=== PATIENT | male | born 1990 | race African-American/Black ===

== ENCOUNTER 2024-04-21 06:42 | Emergency (ER) | payer OTHER ==
--- NOTE | 2024-04-21 07:13 | ED ---
General Adult HPI - General Chief complaint: Headache Stated complaint: ,headache Time Seen by Provider: 04/21/24 06:43 Source: patient, EMS, RN notes reviewed Mode of arrival: EMS Limitations: no limitations - History of Present Illness Initial comments: 34-year-old male presents emergency department with chief complaint of headache, head pressure facial pain. 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 But states he has increasing head pressure along with facial pain states for like his face is swollen. He denies any trauma no neck trauma but states he has some discomfort with swallowing no chest pain or shortness of breath he takes some herbal supplements but denies any current prescription medications takes [id number] omeprazole. Denies any allergies other than not denies any exposures. - Related Data Allergies Allergy/AdvReac Type Severity Reaction Status Date / Time nut - unspecified Allergy Wheezing Verified 04/21/24 06:55 Review of Systems ROS Statement: Those systems with pertinent positive or pertinent negative responses have been documented in the HPI. ROS Other: All systems not noted in ROS Statement are negative. Past Medical History Additional Past Medical History / Comment(s): vitamin D deficency History of Any Multi-Drug Resistant Organisms: None Reported Additional Past Surgical History / Comment(s): Dental sx Smoking Status: Never smoker Past Alcohol Use History: Rare Past Drug Use History: None Reported General Exam Limitations: no limitations General appearance: alert, in no apparent distress Head exam: Present: atraumatic, normocephalic, normal inspection Eye exam: Present: normal appearance, PERRL, EOMI. Absent: scleral icterus, conjunctival injection, periorbital swelling ENT exam: Present: normal exam, normal oropharynx, mucous membranes moist Neck exam: Present: normal inspection, full ROM. Absent: tenderness, meningismus, lymphadenopathy Respiratory exam: Present: normal lung sounds bilaterally. Absent: respiratory distress, wheezes, rales, rhonchi, stridor Cardiovascular Exam: Present: regular rate, normal rhythm, normal heart sounds. Absent: systolic murmur, diastolic murmur, rubs, gallop, clicks GI/Abdominal exam: Present: soft, normal bowel sounds. Absent: distended, tenderness, guarding, rebound, rigid Neurological exam: Present: alert, oriented X3, CN II-XII intact, reflexes normal. Absent: motor sensory deficit Skin exam: Present: warm, dry, intact, normal color. Absent: rash Course Vital Signs 04/21/24 06:45 Temperature 98.5 F Pulse Rate 88 Respiratory 18 Rate Blood Pressure 136/82 O2 Sat by Pulse 96 Oximetry Medical Decision Making - Medical Decision Making Was pt. sent in by a medical professional or institution (, [place], STUD[employer] [facility], urgent care, hospital, or prison...) When possible be specific @ -No Did you speak to anyone other than the patient for history (EMS, parent, family, police, friend...)? What history was obtained from this source @ -No Did you review nursing and triage notes (agree or disagree)? Why? @ -I reviewed and agree with nursing and triage notes Were old charts reviewed (outside hosp., previous admission, EMS record, old EKG, old radiological studies, urgent care reports/EKG's, prison records)? Report findings @ -No old charts were reviewed Differential Diagnosis (chest pain, altered mental status, abdominal pain women, abdominal pain men, vaginal bleeding, weakness, fever, dyspnea, syncope, headache, dizziness, GI bleed, back pain, seizure, CVA, palpatations, mental health, musculoskeletal)? @ -Differential Headache: Migraine, tension, cluster, carbon monoxide, central venous thrombosis, pension karma temporal arteritis, acute closure glaucoma, intercranial hemorrhage, mastoiditis, sinusitis, head injury, this is not meant to be an all-inclusive list. EKG interpreted by me (3pts min.). @ -None X-rays interpreted by me (1pt min.). @ -None done CT interpreted by me (1pt min.). @ -CT brain, facial bones showing no Lycelle bladder tonsils, no acute intracranial hemorrhage, no fracture fracture or acute masses or signs of infection noted U/S interpreted by me (1pt. min.). @ -None done What testing was considered but not performed or refused? (CT, X-rays, U/S, labs)? Why? @ -None What meds were considered but not given or refused? Why? @ -None Did you discuss the management of the patient with other professionals (professionals i.e. , SHAUN, STUDENT AFFAIRS DEAN, lab, RT, psych nurse, social insurance administrator, pedal assembler, teacher, signals officer, director of casework department)? Give summary @ -No Was smoking cessation discussed for >3mins.? @ -No Was critical care preformed (if so, how long)? @ -No Were there social determinants of health that impacted care today? How? (Homelessness, low income, unemployed, alcoholism, drug addiction, transportation, low edu. Level, literacy, decrease access to med. care, nursing home, rehab)? @ -No Was there de-escalation of care discussed even if they declined (Discuss DNR or withdrawal of care, Hospice)? DNR status @ -No What co-morbidities impacted this encounter? (DM, HTN, Smoking, COPD, CAD, Cancer, CVA, ARF, Chemo, Hep., AIDS, mental health diagnosis, sleep apnea, morbid obesity)? @ -None Was patient admitted / discharged? Hospital course, mention meds given and route, prescriptions, significant lab abnormalities, going to OR and other pertinent info. @ -Discharge patient feels greatly improved he has no apparent symptoms at this time. Patient advised that he has low-lying cerebellar tonsils may be consistent with Chiari malformation. Patient will follow-up with neurosurgeon. Patient states that he feels comfortable discharge she is from [place] and prefers to follow-up there. Undiagnosed new problem with uncertain prognosis? @ -No Drug Therapy requiring intensive monitoring for toxicity (Heparin, Nitro, Insulin, Cardizem)? @ -No Were any procedures done? @ -No Diagnosis/symptom? @ -Headache, Chiari malformation Acute, or Chronic, or Acute on Chronic? @ -Acute Uncomplicated (without systemic symptoms) or Complicated (systemic symptoms)? @ -Uncomplicated Side effects of treatment? @ -No Exacerbation, Progression, or Severe Exacerbation? @ -No Poses a threat to life or bodily function? How? (Chest pain, [place], [place], pneumonia, PE, COPD, DKA, ARF, appy, cholecystitis, CVA, Diverticulitis, Homicidal, Suicidal, threat to staff... and all critical care pts) @ -No - Lab Data Result diagrams: 04/21/24 07:21 04/21/24 07:21 Lab Results 04/21/24 04/21/24 04/21/24 Range/Units 07:21 07:21 07:21 WBC 4.1 (3.8-10.6) k/uL RBC 5.61 (4.30-5.90) m/uL Hgb 17.2 (13.0-17.5) gm/dL Hct 51.1 (39.0-53.0) % MCV 91.2 (80.0-100.0) fL MCH 30.8 (25.0-35.0) pg MCHC 33.7 (31.0-37.0) g/dL RDW 13.4 (11.5-15.5) % Plt Count 224 (150-450) k/uL MPV 8.0 Neutrophils % 66 % Lymphocytes % 22 % Monocytes % 8 % Eosinophils % 1 % Basophils % 0 % Neutrophils # 2.7 (1.3-7.7) k/uL Lymphocytes # 0.9 L (1.0-4.8) k/uL Monocytes # 0.3 (0-1.0) k/uL Eosinophils # 0.0 (0-0.7) k/uL Basophils # 0.0 (0-0.2) k/uL Sodium 137 (137-145) mmol/L Potassium 4.2 (3.5-5.1) mmol/L Chloride 102 (98-107) mmol/L Carbon Dioxide 26 (22-30) mmol/L Anion Gap 9 mmol/L BUN 11 (9-20) mg/dL Creatinine 0.96 (0.66-1.25) mg/dL Est GFR (CKD-EPI)AfAm >90 (>60 ml/min/1.73 sqM) Est GFR (CKD-EPI)NonAf >90 (>60 ml/min/1.73 sqM) Glucose 97 (74-99) mg/dL Calcium 9.8 (8.4-10.2) mg/dL Total Bilirubin 1.4 H (0.2-1.3) mg/dL AST 30 (17-59) U/L ALT 29 (4-49) U/L Alkaline Phosphatase 56 (38-126) U/L Total Protein 7.9 (6.3-8.2) g/dL Albumin 4.6 (3.5-5.0) g/dL Urine Color Colorless Urine Appearance Clear (Clear) Urine pH 6.0 (5.0-8.0) Ur Specific [place] 1.009 (1.001-1.035) Urine Protein Negative (Negative) Urine Glucose (UA) Negative (Negative) Urine Ketones Trace H (Negative) Urine Blood Negative (Negative) Urine Nitrite Negative (Negative) Urine Bilirubin Negative (Negative) Urine Urobilinogen <2.0 (<2.0) mg/dL Ur Leukocyte Esterase Negative (Negative) Urine Opiates Screen Not Detected (NotDetected) Ur Oxycodone Screen Not Detected (NotDetected) Urine Methadone Screen Not Detected (NotDetected) Ur Barbiturates Screen Not Detected (NotDetected) U Tricyclic Antidepress Not Detected (NotDetected) Ur Phencyclidine Scrn Not Detected (NotDetected) Ur Amphetamines Screen Not Detected (NotDetected) U Methamphetamines Scrn Not Detected (NotDetected) U Benzodiazepines Scrn Not Detected (NotDetected) Urine Cocaine Screen Not Detected (NotDetected) U Marijuana (THC) Screen Not Detected (NotDetected) Serum Alcohol <10 mg/dL Disposition Clinical Impression: Headache, Chiari malformation Disposition: HOME SELF-CARE Condition: Stable Instructions (If sedation given, give patient instructions): Acute Headache (ED) Additional Instructions: Please return to the Emergency Department if symptoms worsen or any other concerns. Follow-up with neurosurgeon. Is patient prescribed a controlled substance at d/c from ED?: No Referrals: None,Stated [Primary Care Provider] - 1-2 days Time of Disposition: 08:45
[2024-04-21] MEDS: SODIUM CHLORIDE 0.9% 1,000 ML IV STA (07:19)
[2024-04-21 07:27] LABS: Basophils % (A) 0 %; Eosinophils % (A) 1 %; HCT 51.1 % (39.0-53.0); HGB 17.2 gm/dL (13.0-17.5); Lymphocytes # (A) 0.9 k/uL (1.0-4.8); Lymphocytes % (A) 22 %; MCH 30.8 pg (25.0-35.0); MCHC 33.7 g/dL (31.0-37.0); MCV 91.2 fL (80.0-100.0); Monocytes # (A) 0.3 k/uL (0-1.0); Monocytes % (A) 8 %; Neutrophils # (A) 2.7 k/uL (1.3-7.7); Neutrophils % (A) 66 %; Platelet Count 224 k/uL (150-450); RBC 5.61 m/uL (4.30-5.90); RDW 13.4 % (11.5-15.5); WBC 4.1 k/uL (3.8-10.6)
[2024-04-21 07:31] LABS: Appearance,Urine Clear (Clear); Bilirubin,Urine Negative (Negative); Blood,Urine Negative (Negative); Color,Urine Colorless; Glucose,Urine (UA) Negative (Negative); Ketones,Urine Trace (Negative); Leukocyte Esterase,Urine Negative (Negative); Nitrite,Urine Negative (Negative); Protein,Urine Negative (Negative); Specific Gravity,Urine 1.009 (1.001-1.035); Urobilinogen,Urine <2.0 mg/dL (<2.0)
[2024-04-21 07:36] LABS: ALT 29 U/L (4-49); AST 30 U/L (17-59); African American GFR (CKD) >90 (>60 ml/min/1.73 sqM); Albumin 4.6 g/dL (3.5-5.0); Alcohol <10 mg/dL; Alkaline Phosphatase 56 U/L (38-126); Anion Gap 9 mmol/L; Blood Urea Nitrogen 11 mg/dL (9-20); Calcium 9.8 mg/dL (8.4-10.2); Carbon Dioxide 26 mmol/L (22-30); Chloride 102 mmol/L (98-107); Glucose 97 mg/dL (74-99); Non-African American GFR(CKD) >90 (>60 ml/min/1.73 sqM); Potassium 4.2 mmol/L (3.5-5.1); Sodium 137 mmol/L (137-145); Total Bilirubin 1.4 mg/dL (0.2-1.3); Total Protein 7.9 g/dL (6.3-8.2)
[2024-04-21 07:47] LABS: Amphetamine Screen,Urine Not Detected (NotDetected); Barbiturate Screen,Urine Not Detected (NotDetected); Benzodiazepines Screen,Urine Not Detected (NotDetected); Cocaine Screen,Urine Not Detected (NotDetected); Methadone Screen, Urine Not Detected (NotDetected); Opiate Screen,Urine Not Detected (NotDetected); Oxycodone Screen, Urine Not Detected (NotDetected); Phencyclidine Screen,Urine Not Detected (NotDetected); Tricyclic Antidepressant,Urine Not Detected (NotDetected); Urn Cannabinoid Scrn Not Detected (NotDetected)
--- NOTE | 2024-04-21 08:24 | CT ---
EXAMINATION TYPE: CT brain wo con, CT facial bones wo con CT DLP: combined 1472.4 mGycm, Automated exposure control for dose reduction was used. DATE OF EXAM: 04/21/2024 8:09 AM COMPARISON: None. CLINICAL INDICATION:Male, 34 years old with history of Headache; Head pressure, facial pain TECHNIQUE: Brain: Multiple axial CT images of the brain were obtained without IV contrast. Facial bones; axial CT images of the facial bones were obtained without contrast and soft tissue and bone windows. Coronal and sagittal reformatted images were also reviewed. FINDINGS: Brain: Extra-axial spaces: No abnormal extra-axial fluid collections. Ventricular system: Prominence of the posterior horns of the lateral ventricles without overt hydrone phrosis. Cerebral parenchyma: No acute intraparenchymal hemorrhage or mass effect. The callaway-white junction is well differentiated. Cerebellum: The cerebellar tonsils extend 4 mm below the foramen magnum. Mass effect: No evidence of midline shift. Intracranial vasculature: unremarkable Soft tissues: Normal. Calvarium: No depressed skull fracture. Paranasal sinuses and mastoid air cells: Clear. Visualized orbits: Orbital contents are intact. Facial Bones: There is no evidence of fracture, subluxation, dislocation, or significant soft tissue swelling. The orbital contents are unremarkable. The temporal-mandibular joints appear symmetric. The visualized po rtion of the paranasal sinuses appear clear. Aplasia of the bilateral frontal sinuses. Cerumen within the bilateral external auditory canals. IMPRESSION: 1. No acute intracranial process. 2. Low-lying cerebellar tonsils. 3. No acute facial bone fracture. [facility], , 04/21/2024 8:22 AM
[2024-04-21 09:17] VITALS: BP 138/83; PULSE 71; RESP 16; TEMP 97.8
== END 2024-04-21 09:36 | disposition home or self-care (01) ==
LOC: EC 06:42
DX: R51.9 Headache, unspecified (principal); Q07.00 Arnold-Chiari syndrome without spina bifida or hydrocephalus; Z88.8 Allergy status to other drugs, medicaments and biological substances
CPT/HCPCS: 36415; 70450; 70486; 80053; 80306; 80320; 81003; 85025; 96360; 99284

== ENCOUNTER 2024-04-25 13:50 | Emergency (ER) | payer OTHER ==
[2024-04-25 14:06] VITALS: RESP 18
--- NOTE | 2024-04-25 14:48 | ED ---
Chest Pain HPI - General Chief Complaint: Chest Pain Stated Complaint: ARNAV, chest pain Time Seen by Provider: 04/25/24 14:10 Source: patient, RN notes reviewed, old records reviewed Mode of arrival: ambulatory Limitations: no limitations - History of Present Illness Initial Comments: This is a 34 male to the ER for evaluation of chest pain. Patient does admit to severe anxiety currently recently in the ER told he had abnormal CT of his brain. Patient coming in with chest pain and anxiety today left and right-sided chest pain without shortness of breath no other travel or sick contacts fever cough or congestion MD Complaint: chest pain -: days(s) Severity: moderate Severity scale (1-10): 4 Quality: aching Consistency: intermittent, now resolved Improves With: nothing Worsens With: nothing Other Symptoms: palpitations Treatments Prior to Arrival: none - Related Data Allergies Allergy/AdvReac Type Severity Reaction Status Date / Time nut - unspecified Allergy Wheezing Verified 04/21/24 06:55 Review of Systems ROS Statement: Those systems with pertinent positive or pertinent negative responses have been documented in the HPI. ROS Other: All systems not noted in ROS Statement are negative. EKG Findings - EKG Comments: EKG Findings:: EKG is sinus 90 IN 133 QRS 94 QTc 367 - EKG Results: EKG: interpreted by DIANE Past Medical History Additional Past Medical History / Comment(s): vitamin D deficency History of Any Multi-Drug Resistant Organisms: None Reported Additional Past Surgical History / Comment(s): Dental sx Smoking Status: Never smoker Past Alcohol Use History: Rare Past Drug Use History: None Reported General Exam Limitations: no limitations General appearance: alert, in no apparent distress Head exam: Present: atraumatic, normocephalic, normal inspection Eye exam: Present: normal appearance, PERRL, EOMI. Absent: scleral icterus, conjunctival injection, periorbital swelling ENT exam: Present: normal exam, mucous membranes moist Neck exam: Present: normal inspection. Absent: tenderness, meningismus, lymphadenopathy Respiratory exam: Present: normal lung sounds bilaterally. Absent: respiratory distress, wheezes, rales, rhonchi, stridor Cardiovascular Exam: Present: regular rate, normal rhythm, normal heart sounds. Absent: systolic murmur, diastolic murmur, rubs, gallop, clicks GI/Abdominal exam: Present: soft, normal bowel sounds. Absent: distended, tenderness, guarding, rebound, rigid Extremities exam: Present: normal inspection, full ROM, normal capillary refill. Absent: tenderness, pedal edema, joint swelling, calf tenderness Back exam: Present: normal inspection Neurological exam: Present: alert, oriented X3, CN II-XII intact Psychiatric exam: Present: normal affect, normal mood Skin exam: Present: warm, dry, intact, normal color. Absent: rash Course Vital Signs 04/25/24 04/25/24 14:01 16:18 Temperature 98.3 F 99.0 F Pulse Rate 104 H 80 Respiratory 18 18 Rate Blood Pressure 151/96 123/84 O2 Sat by Pulse 97 98 Oximetry - Reevaluation(s) Reevaluation #1: Medical records reviewed Reevaluation #2: Chest pain is resolved Reevaluation #3: Patient informed of results and questions answered Reevaluation #4: Was pt. sent in by a medical professional or institution (, PA, ASSISTANT PROJECT MANAGER, urgent care, hospital, or penitentiary...) When possible be specific @ -no Did you speak to anyone other than the patient for history (EMS, parent, family, police, friend...)? What history was obtained from this source @ -no Did you review nursing and triage notes (agree or disagree)? Why? @ -agree Are old charts reviewed (outside hosp., previous admission, EMS record, old EKG, old radiological studies, urgent care reports/EKG's, penitentiary records)? Report findings @ -yes Differential Diagnosis (chest pain, altered mental status, abdominal pain women, abdominal pain men, vaginal bleeding, weakness, fever, dyspnea, syncope, headache, dizziness, GI bleed, back pain, seizure, CVA, palpatations, mental health, musculoskeletal)? @ -prior EKG interpreted by me (3pts min.). @ -yes X-rays interpreted by me (1pt min.). @ -yes negative for acute disease CT interpreted by me (1pt min.). @ -no U/S interpreted by me (1pt. min.). @ -no What testing was considered but not performed or refused? (CT, X-rays, U/S, labs)? Why? @ -none What meds were considered but not given or refused? Why? @ -none Did you discuss the management of the patient with other professionals (professionals i.e. , PA, ASSISTANT PROJECT MANAGER, lab, RT, psych nurse, social welfare clerk, ceo and president, teacher, deportation officer, onsite case manager)? Give summary @ -no Was smoking cessation discussed for >3mins.? @ -no Was critical care preformed (if so, how long)? @ -no Were there social determinants of health that impacted care today? How? (Homelessness, low income, unemployed, alcoholism, drug addiction, transportation, low edu. Level, literacy, decrease access to med. care, prison, rehab)? @ -none Was there de-escalation of care discussed even if they declined (Discuss DNR or withdrawal of care, Hospice)? DNR status @ -no What co-morbidities impacted this encounter? (DM, HTN, Smoking, COPD, CAD, Cancer, CVA, ARF, Chemo, Hep., AIDS, mental health diagnosis, sleep apnea, morbid obesity)? @ -none Was patient admitted / discharged? Hospital course, mention meds given and route, prescriptions, significant lab abnormalities, going to OR and other pertinent info. @ - 34 male to the ER for evaluation of chest pain no acute cause of chest pain found here in the ER patient's exam is normal can be discharged home Discharge Undiagnosed new problem with uncertain prognosis? @ -no Drug Therapy requiring intensive monitoring for toxicity (Heparin, Nitro, Insulin, Cardizem)? @ -no Were any procedures done? @ -no Diagnosis/symptom? @ -Chest pain Acute, or Chronic, or Acute on Chronic? @ -Acute Uncomplicated (without systemic symptoms) or Complicated (systemic symptoms)? @ -Complicated Side effects of treatment? @ -no Exacerbation, Progression, or Severe Exacerbation? @ -exacerbation Poses a threat to life or bodily function? How? (Chest pain, [place], [place], pneumonia, PE, COPD, DKA, ARF, appy, cholecystitis, CVA, Diverticulitis, Homicidal, Suicid al, threat to staff... and all critical care pts) @ -yes 04/30/24 19:32 Reevaluation #5: Differential Chest Pain: Stable Angina, Unstable Angina, STEMI, NSTEMI Aortic Dissection, Pneumothorax, Musculoskeletal, Esophageal Spasm GERD, Cholecystitis, Pancreatitis, Zoster, this is not meant to be an all-inclusive list. Chest Pain MDM - MDM 34 male to the ER for evaluation of chest pain no acute cause of chest pain found here in the ER patient's exam is normal can be discharged home Disposition Clinical Impression: Atypical chest pain, Chest pain Disposition: HOME SELF-CARE Condition: Good Instructions (If sedation given, give patient instructions): Chest Pain (ED) Is patient prescribed a controlled substance at d/c from ED?: No Referrals: None,Stated [Primary Care Provider] - 1-2 days Time of Disposition: 16:00
--- NOTE | 2024-04-25 15:41 | XR ---
EXAMINATION TYPE: XR chest 2V DATE OF EXAM: 04/25/2024 3:29 PM COMPARISON: Chest radiographs from CLINICAL INDICATION: Male, 34 years old with history of cp; [facility] TECHNIQUE: XR chest 2V Frontal and lateral views of the chest. FINDINGS: Lungs/Pleura: There is no evidence of pleural effusion, focal consolidation, or pneumothorax. Pulmonary vascularity: Unremarkable. Heart/mediastinum: Cardiomediastinal silhouette is unremarkable. Musculoskeletal: No acute osseous pathology. IMPRESSION: No acute cardiopulmonary disease/process. [facility], , 04/25/2024 3:39 PM
[2024-04-25 15:59] LABS: Influenza A Not Detected (Not Detectd); Influenza B Not Detected (Not Detectd); RSV Not Detected (Not Detectd)
[2024-04-25 16:20] VITALS: BP 123/84; PULSE 80; TEMP 99
== END 2024-04-25 16:23 | disposition home or self-care (01) ==
LOC: EC 13:50
DX: R07.89 Other chest pain (principal); Z88.8 Allergy status to other drugs, medicaments and biological substances
CPT/HCPCS: 71046; 87636; 99285